=== PATIENT | female | born 1955 | race Caucasian/White ===

== ENCOUNTER → 2023-05-30 12:31 | Outpatient (REF) | payer MEDICARE, SELFPAY ==
[2023-05-30 12:43] VITALS: BP 122/75; BP_SYST 76
[2023-05-30 12:59] VITALS: BP 105/60; BP_SYST 69
== END ==
LOC: RADI 12:31
PROVIDERS: ATTENDING PHYSICIAN Internal Medicine Hematology & Oncology; FAMILY PHYSICIAN Internal Medicine
DX: J90 Pleural effusion, not elsewhere classified (principal)
CPT/HCPCS: 32555; 71045

== ENCOUNTER 2023-05-30 17:48 | Emergency (ER) | payer MEDICARE, SELFPAY ==
[2023-05-30 18:05] LABS: % Basophils 1.4 % (0-2); % Eosinophils 1.9 % (0-6); % Immature Granulocytes 0.2 % (0-0.5); % Lymphocytes 19.9 % (20.5-51.1); % Monocytes 11.8 % (1.7-9.3); % Neutrophils 64.8 % (42.2-75.2); Absolute Basophils 0.1 10^3/uL (0-0.2); Absolute Eosinophils 0.1 10^3/uL (0-0.7); Absolute Lymphocytes 0.8 10^3/uL (1.2-3.4); Absolute Monocytes 0.5 10^3/uL (0.1-0.6); Absolute Neutrophils 2.7 10^3/uL (1.4-6.5); Hematocrit 34.5 % (37.0-47.0); Hemoglobin 11.3 g/dL (12.0-16.0); Mean Corp Hgb Conc. 32.8 g/dL (33.0-37.0); Mean Corpuscular Hgb 28.7 pg (27.0-31.0); Mean Corpuscular Volume 87.6 fL (81.0-99.0); Mean Platelet Volume 9.3 fL (7.4-10.4); Nucleated Red Blood Cells % 0 %; Platelet Count 326 10^3/uL (130-400); Red Blood Cell Count 3.94 10^6/uL (4.20-5.40); Red Cell Dist. Width 16.5 % (11.5-14.5); White Blood Cell Count 4.2 10^3/uL (4.8-10.8)
[2023-05-30 18:16] LABS: APTT 24.1 Sec (23.4-35.0)
[2023-05-30 18:23] LABS: ALT (SGPT) 15 U/L (0-35); AST (SGOT) 21 U/L (14-36); Albumin 2.9 g/dl (3.5-5.0); Alkaline Phosphatase 66 U/L (38-126); Blood Urea Nitrogen 23 mg/dl (7-17); Calcium 8.5 mg/dl (8.4-10.2); Carbon Dioxide 26 mmol/L (22-30); Chloride 106 mmol/L (98-107); Glucose 109 mg/dl (70-99); Potassium 3.7 mmol/L (3.5-5.1); Sodium 134 mmol/L (135-145); Total Bilirubin 0.5 mg/dl (0.2-1.3); Total Protein 5.6 g/dl (6.3-8.2); eGFR > 60.00
[2023-05-30 18:30] LABS: Troponin I < 0.012 ng/ml
[2023-05-30 19:14] VITALS: BP 124/70
[2023-05-30 19:49] VITALS: BP 119/80; BP 121/69; BP 124/70; PULSE 74; PULSE 79; PULSE 82
--- NOTE | 2023-05-30 23:59 | ED.GENMED ---
History of Present Illness
General
Chief Complaint: Fainting/Passed Out
Source: patient, spouse and family (Son)
Exam Limitations: none
Time Seen by Provider: 05/30/23 18:41
Nursing documentation reviewed up to this point in time: agreed with
Travel History
Have you had any contact with someone who has COVID-19?: No
Do you have any symptoms of coronavirus? Fever > 100 degrees, chills, cough, shortness of breath, sore throat, loss of taste or smell, muscle aches, or headache?: No
History of Present Illness
History of Present Illness:
68-year-old female with past medical history of Waldenstr�m's macroglobulinemia, recurrent pleural effusion (chylothorax) who presents to the emergency department accompanied by her and son for evaluation after syncopal event. Patient
reports that she had thoracentesis today for her recurrent chylothorax (she says she gets thoracentesis 3 times weekly); she says that they took off 1.1 L. She says that when she went home she was cooking dinner and generally 'overdoing it.' She
says normally she rests after thoracentesis. She says that she was feeling mildly lightheaded then went to the bathroom to see if maybe she needed to have a bowel movement. She says that she did not actually go to the bathroom and when she stood
up from the toilet and went to walk back to the couch she passed out. witnessed fall says that she did hit her head. She came to the emergency be assessed. She says she did not have any palpitations, chest pain, shortness of breath
associated with her symptoms. She has no complaints here in the emergency room including denying headache, abdominal pain, flank pain, nausea, vomiting. She is not on any blood thinners.
Past History
Past History
ED Past Medical History: Cancer (Melanoma, Waldenstr�m's); Negative CVA or HTN
ED Past Surgical History: None
Social History
Tobacco: Non-smoker
Alcohol: Occasional
Drug: None
Personal:
Living: with family
Employment: Employed
Family History
Family History: Other
Review of Systems
Review of Systems
All Other Systems: ROS reviewed and negative except as documented in HPI and ROS
Constitutional: Denies fever
Respiratory: Denies cough or trouble breathing
Cardiac: Reports syncope; Denies chest pain, diaphoresis or palpitations
ABD/GI: Denies abdominal pain, nausea, vomiting or diarrhea
: Denies flank pain
Musculoskeletal: Denies neck pain or back pain
Neurological: Denies headache, weakness or numbness
Phy Exam
Physical Exam
Physical Exam:
General: Awake, alert, oriented x3; no acute distress
Head: Normocephalic, atraumatic
Eyes: Conjunctiva normal, EOMI, pupils equal round reactive to light bilaterally
Throat: Airway intact, handling secretions
Neck: Trachea midline, supple without meningismus
Lungs: Clear to auscultation bilaterally, no wheezing, rales, rhonchi
Heart: Regular rate and rhythm, no murmurs, gallops, or rubs appreciated
Abd: Soft, non distended, nontender
Neuro: Cranial nerves grossly intact, speech fluid
Skin: no rash
Extremities: Atraumatic, no edema in extremities, equal pulses in all extremities
Scores
Heart Failure Risk
Heart Failure Risk Score: Not Applicable
Heart Score for Chest Pain Patients
STEMI patient?: Not applicable
[place] Syncope Rule
Conjestive Heart Failure History: No
Hematocrit <30%: No
EKG Abnormal (New changes, non NSR on EKG/Monitor): No
Shortness of Breath Symptoms: No
Systolic BP <90 mmHg at Triage: No
Patient is high risk for syncope: No
Withdrawal Assessment of Alcohol
Withdrawal Assessment Completed?: Not applicable
Course
Orders/Labs/Results
Orders:
Orders
05/30/23 17:49
Electrocardiogram (*1) Urgent
Reason for Study: Syncope
CT Head W/o Iv Contrast Urgent
Comment:
Reason For Exam: syncope
CR Chest - 2 Views Urgent
Comment:
Reason For Exam: syncope
05/30/23 17:50
EKG- Treatment ONCE
05/30/23 17:57
Complete Blood Count/With Diff Urgent
Comprehensive Metabolic Panel Urgent
PTT Urgent
Troponin I Urgent
Abnormal Lab Results
05/30/23
17:57
WBC 4.2 L 10^3/uL
(4.8-10.8)
RBC 3.94 L 10^6/uL
(4.20-5.40)
Hgb 11.3 L g/dL
(12.0-16.0)
Hct 34.5 L %
(37.0-47.0)
MCHC 32.8 L g/dL
(33.0-37.0)
RDW 16.5 H %
(11.5-14.5)
Absolute Lymphs (auto) 0.8 L 10^3/uL
(1.2-3.4)
Lymphocytes % 19.9 L %
(20.5-51.1)
Monocytes % 11.8 H %
(1.7-9.3)
Sodium 134 L mmol/L
(135-145)
BUN 23 H mg/dl
(7-17)
Glucose 109 H mg/dl
(70-99)
Total Protein 5.6 L g/dl
(6.3-8.2)
Albumin 2.9 L g/dl
(3.5-5.0)
05/30/23 17:57
05/30/23 17:57
Vital Signs
Initial and Last Documented VS:
Initial Vital Signs
Temp Pulse Resp Pulse Ox
37.0 C 77 20 99
05/30/23 17:50 05/30/23 17:50 05/30/23 17:50 05/30/23 17:50
Last Documented Vital Signs
Temp Pulse Resp BP Pulse Ox
37.0 C 72 18 124/70 99
05/30/23 17:50 05/30/23 19:14 05/30/23 19:14 05/30/23 19:14 05/30/23 19:14
MDM/Problems Addressed
Differential Diagnosis Includes:
Orthostatic/postural hypotension, vagal event, dysrhythmia somewhat less likely; nothing clinically to suggest emergent pathology such as subarachnoid hemorrhage, ruptured AAA, acute DC, massive PE
MDM/Problems Addressed:
68-year-old female presents after syncopal event that happened shortly after large-volume thoracentesis. She did hit her head but did not sustain any other serious injuries. She has no complaints here in the emergency room. Her vital signs are
normal. Exam as above. Her EKG shows no concerning changes�no bradycardia or heart block, no delta wave or Brugada, normal QTc. She had lab work sent in triage including a CBC which shows stable anemia, CMP which showed no clinically significant
abnormalities. She had a troponin sent in triage despite no reported chest pain and this was negative. She had a chest x-ray which showed trace pleural effusions otherwise a couple. She had a CT of the head which was negative for any acute
pathology. I think at this point likely was either a postural episode of hypotension related to recent large-volume thoracentesis or perhaps even a vagal episode. Very low suspicion for emergent pathology at this point based on history, exam, full
clinical picture as above. Nevertheless given her age I did offer her admission overnight on telemetry�shxavier says that she feels well and prefers to be discharged. She says that she 'overdid it' and typically takes it much slower after having
thoracentesis. She wishes to go home and drink fluids I think this is reasonable�using shared decision making discharged and she will follow-up as an outpatient with her primary care physician. Spoke about return precautions all questions answered.
Chronic conditions affecting care:
Recurrent pleural effusion presenting for syncope after thoracentesis related to this
*Radiology
Radiology exam reviewed: radiology read reviewed
*Pulse Oximetry
Patient hypoxic: no
*EKG
Interpreted by ED Provider?: Yes
Heart Rate: 79
Rate: normal
Rhythm: sinus
[place]: normal axis
Interval: normal interval
QRS Pattern: normal QRS
Ischemia: non-specific ST changes
*Critical Care Note
Total Time (30-74mins, 75-104mins- exclusive of procedures): Not Applicable
Data Reviewed
Source: patient, records and family
Patient Management
Social determinants of health affecting care: Strong social support
Escalation/DeEscalation of care consider admission/obs:
Offered admission for monitoring on telemetry�using shared decision making as above, patient discharged with outpatient follow-up plan
ED Attending Note
-
Portions of this chart may have been created with voice recognition software.� Occasional wrong word or��sound alike� substitutions may have occurred due to the inherent limitations of voice recognition software.
Discharge Plan
Departure
Patient Disposition: Home (Routine Discharge)
Date of Disposition: 05/30/23
Time of Disposition: 20:27
Patient with high blood pressure during this ER visit?: No
Discharge Problem:
Syncope
Instructions: Syncope (Fainting) (DC)
Prescriptions:
No Action
omeprazole 40 mg Capsule,Delayed Release(Dr/Ec)
40 mg PO DAILY
famotidine 20 mg Tablet
20 mg PO HS
ferrous sulfate [iron] 325 mg (65 mg iron) Tablet
325 mg PO DAILY
cholecalciferol (vitamin D3) 25 mcg (1,000 unit) Tablet
25 mcg PO DAILY
Brukinsa 80 mg Capsule
160 mg PO BID
Referrals:
Yaneli Molina MD [Family Provider] - Follow up in 2-3 days
Activity Restrictions/Additional Instructions:
Thank you for visiting the Emergency Department at [facility].
1. Please schedule a follow up appointment as directed. Call first thing tomorrow morning to make an appointment.
2. If indicated, please take your medications as instructed and indicated on discharge paperwork.
3. If any of your symptoms do not improve, or persist, or become more severe within 6-12 hours, please return to the emergency department for further care.
4. Please return to the emergency department if you develop a headache, neck pain/stiffness, fever greater than 100.4F, chest pain, shortness of breath, persistent nausea, vomiting, slurred speech, difficulty walking, numbness/tingling, weakness,
signs of infection or any other symptoms that are worrisome to you.
Please call [phone] if you have any questions.
Interventions
Interventions:
*Risk Screen - Suicide Last Done: 05/30/23 17:50
*General Assessment Last Done: 05/30/23 17:50
*Neglect/Abuse Screening Last Done: 05/30/23 17:50
ED- Fall Risk Assessment Last Done: 05/30/23 18:01
*ED COVID-19 Vaccine History Last Done: 05/30/23 18:01
*Nursing Disposition Last Done: 05/30/23 20:32
ED- Cardiac Assessment Last Done: 05/30/23 18:01
ED- Neurological Assessment Last Done: 05/30/23 18:01
Discharge Date and Time
Discharge Date/Time: 05/30/23 20:43
== END 2023-05-30 20:43 | disposition home or self-care (01) ==
LOC: EMR 17:48
PROVIDERS: Student in an Organized Health Care Education/Training Program; EMERGENCY PHYSICIAN Emergency Medicine; FAMILY PHYSICIAN Internal Medicine
DX: R55 Syncope and collapse (principal); J90 Pleural effusion, not elsewhere classified; D64.9 Anemia, unspecified; Z85.820 Personal history of malignant melanoma of skin
CPT/HCPCS: 99285; 32555; 70450; 71045; 71046; 80053; 84484; 85025; 85730; 93005

== ENCOUNTER → 2023-06-02 12:43 | Outpatient (REF) | payer MEDICARE, SELFPAY ==
[2023-06-02 13:00] VITALS: BP 116/67; BP_SYST 82
[2023-06-02 13:26] VITALS: BP 113/73
== END ==
LOC: RADI 12:43
PROVIDERS: ATTENDING PHYSICIAN Internal Medicine Hematology & Oncology
DX: J90 Pleural effusion, not elsewhere classified (principal)
CPT/HCPCS: 32555; 71045

== ENCOUNTER → 2023-06-06 13:04 | Outpatient (REF) | payer MEDICARE, SELFPAY ==
[2023-06-06 13:10] VITALS: BP 118/68; BP_SYST 87
[2023-06-06 13:43] VITALS: BP 124/69; BP_SYST 87
== END ==
LOC: RADI 13:04
PROVIDERS: ATTENDING PHYSICIAN Internal Medicine Hematology & Oncology
DX: J90 Pleural effusion, not elsewhere classified (principal)
CPT/HCPCS: 32555; 71045

== ENCOUNTER → 2023-06-09 08:23 | Outpatient (REF) | payer MEDICARE, SELFPAY ==
[2023-06-09 08:56] LABS: % Basophils 1.7 % (0-2); % Eosinophils 2.4 % (0-6); % Lymphocytes 32.8 % (20.5-51.1); % Monocytes 18.4 % (1.7-9.3); % Neutrophils 44.7 % (42.2-75.2); Absolute Basophils 0.1 10^3/uL (0-0.2); Absolute Eosinophils 0.1 10^3/uL (0-0.7); Absolute Monocytes 0.5 10^3/uL (0.1-0.6); Absolute Neutrophils 1.3 10^3/uL (1.4-6.5); Hematocrit 36.6 % (37.0-47.0); Hemoglobin 11.9 g/dL (12.0-16.0); Mean Corp Hgb Conc. 32.5 g/dL (33.0-37.0); Mean Corpuscular Hgb 28.9 pg (27.0-31.0); Mean Corpuscular Volume 88.8 fL (81.0-99.0); Mean Platelet Volume 9.4 fL (7.4-10.4); Nucleated Red Blood Cells % 0 %; Platelet Count 333 10^3/uL (130-400); Red Blood Cell Count 4.12 10^6/uL (4.20-5.40); Red Cell Dist. Width 15.4 % (11.5-14.5); White Blood Cell Count 2.9 10^3/uL (4.8-10.8)
[2023-06-09 09:08] VITALS: BP 121/80; BP_SYST 88
[2023-06-09 09:22] LABS: ALT (SGPT) 15 U/L (0-35); AST (SGOT) 21 U/L (14-36); Albumin 3.1 g/dl (3.5-5.0); Alkaline Phosphatase 68 U/L (38-126); Blood Urea Nitrogen 19 mg/dl (7-17); Carbon Dioxide 29 mmol/L (22-30); Chloride 105 mmol/L (98-107); Glucose 92 mg/dl (70-99); HDL Cholesterol 52 mg/dl; LDL Cholesterol, Calculated 120 mg/dl; Potassium 4.2 mmol/L (3.5-5.1); Sodium 136 mmol/L (135-145); Total Bilirubin 0.7 mg/dl (0.2-1.3); Total Cholesterol 190 mg/dl (50-199); Total Protein 5.8 g/dl (6.3-8.2); Triglyceride 93 mg/dl (10-149); Very Low Density Lipoprotein 18 mg/dl (0-30); eGFR > 60.00
[2023-06-09 09:31] VITALS: BP 111/66; BP_SYST 74
[2023-06-09 09:51] LABS: TSH Reflex To Free T4 1.42 uIU/ml (0.47-4.68)
== END ==
LOC: RADI 08:23
PROVIDERS: ATTENDING PHYSICIAN Internal Medicine Hematology & Oncology; FAMILY PHYSICIAN Internal Medicine
DX: J90 Pleural effusion, not elsewhere classified (principal)
CPT/HCPCS: 32555; 36415; 71045; 80053; 80061; 84443; 85025

== ENCOUNTER → 2023-06-13 12:28 | Outpatient (REF) | payer MEDICARE, SELFPAY ==
[2023-06-13 12:50] VITALS: BP 116/70; BP_SYST 68
[2023-06-13 13:12] VITALS: BP 108/70
== END ==
LOC: RADI 12:28
PROVIDERS: ATTENDING PHYSICIAN Internal Medicine Hematology & Oncology; FAMILY PHYSICIAN Internal Medicine
DX: J90 Pleural effusion, not elsewhere classified (principal)
CPT/HCPCS: 32555; 71045

== ENCOUNTER → 2023-06-16 13:07 | Outpatient (REF) | payer MEDICARE, SELFPAY ==
[2023-06-16 13:30] VITALS: BP 122/70; BP_SYST 96
[2023-06-16 13:47] VITALS: BP 123/76; BP_SYST 77
[2023-06-16 13:51] VITALS: BP 123/76; BP_SYST 77
== END ==
LOC: RADI 13:07
PROVIDERS: ATTENDING PHYSICIAN Internal Medicine Hematology & Oncology
DX: J90 Pleural effusion, not elsewhere classified (principal)
CPT/HCPCS: 32555; 71045

== ENCOUNTER → 2023-06-19 12:23 | Outpatient (REF) | payer MEDICARE, SELFPAY ==
[2023-06-19 12:32] VITALS: BP 112/77; BP_SYST 72
[2023-06-19 13:20] VITALS: BP 123/67; BP_SYST 65
[2023-06-19 13:24] VITALS: BP 123/67
== END ==
LOC: RADI 12:23
PROVIDERS: ATTENDING PHYSICIAN Internal Medicine Hematology & Oncology; FAMILY PHYSICIAN Internal Medicine
DX: J90 Pleural effusion, not elsewhere classified (principal)
CPT/HCPCS: 32555; 71045

== ENCOUNTER → 2023-06-23 10:54 | Outpatient (REF) | payer MEDICARE, SELFPAY ==
[2023-06-23 11:10] VITALS: BP 101/74; BP_SYST 76
[2023-06-23 11:40] VITALS: BP 129/79; BP_SYST 71
== END ==
LOC: RADI 10:54
PROVIDERS: ATTENDING PHYSICIAN Internal Medicine Hematology & Oncology; FAMILY PHYSICIAN Internal Medicine
DX: J90 Pleural effusion, not elsewhere classified (principal)
CPT/HCPCS: 32555; 71045

== ENCOUNTER → 2023-06-27 11:02 | Outpatient (REF) | payer MEDICARE, SELFPAY ==
[2023-06-27 11:15] VITALS: BP 105/74; BP_SYST 71
[2023-06-27 11:46] VITALS: BP 102/70
== END ==
LOC: WDC 11:02
PROVIDERS: ATTENDING PHYSICIAN Obstetrics & Gynecology Gynecology; FAMILY PHYSICIAN Internal Medicine
DX: Z12.31 Encounter for screening mammogram for malignant neoplasm of breast (principal)
CPT/HCPCS: 32555; 71045; 77063; 77067

== ENCOUNTER → 2023-06-30 11:48 | Outpatient (REF) | payer MEDICARE, SELFPAY ==
[2023-06-30 12:10] VITALS: BP 90/74; BP_SYST 85
[2023-06-30 12:35] VITALS: BP 105/62
== END ==
LOC: RADI 11:48
PROVIDERS: ATTENDING PHYSICIAN Internal Medicine Hematology & Oncology
DX: J90 Pleural effusion, not elsewhere classified (principal)
CPT/HCPCS: 32555; 71045

== ENCOUNTER → 2023-07-04 10:30 | Outpatient (REF) | payer MEDICARE, SELFPAY ==
[2023-07-04 10:46] VITALS: BP 151/100; BP_SYST 72
[2023-07-04 11:54] VITALS: BP 110/75
== END ==
LOC: RADI 10:30
PROVIDERS: ATTENDING PHYSICIAN Internal Medicine Hematology & Oncology; FAMILY PHYSICIAN Internal Medicine
DX: J90 Pleural effusion, not elsewhere classified (principal)
CPT/HCPCS: 32555; 71045

== ENCOUNTER → 2023-07-07 10:05 | Outpatient (REF) | payer MEDICARE, SELFPAY ==
[2023-07-07 10:20] VITALS: BP 121/72; BP_SYST 59
[2023-07-07 10:47] VITALS: BP 111/83; BP_SYST 64
[2023-07-07 11:08] VITALS: BP 111/83
== END ==
LOC: RADI 10:05
PROVIDERS: ATTENDING PHYSICIAN Internal Medicine Hematology & Oncology
DX: J90 Pleural effusion, not elsewhere classified (principal)
CPT/HCPCS: 32555; 71045

== ENCOUNTER → 2023-07-11 13:07 | Outpatient (REF) | payer MEDICARE, SELFPAY ==
[2023-07-11 13:20] VITALS: BP 111/74; BP_SYST 77
[2023-07-11 13:40] VITALS: BP 111/74; BP_SYST 63
[2023-07-11 13:47] VITALS: BP 111/74
== END ==
LOC: RADI 13:07
PROVIDERS: ATTENDING PHYSICIAN Internal Medicine Hematology & Oncology; FAMILY PHYSICIAN Internal Medicine
DX: J90 Pleural effusion, not elsewhere classified (principal)
CPT/HCPCS: 32555; 71045

== ENCOUNTER → 2023-07-14 10:13 | Outpatient (REF) | payer MEDICARE, SELFPAY ==
[2023-07-14 10:35] VITALS: BP 116/74; BP_SYST 84
[2023-07-14 10:51] VITALS: BP 127/69; BP_SYST 72
[2023-07-14 10:55] VITALS: BP 127/69; BP_SYST 72
[2023-07-14 10:58] VITALS: BP 127/69
== END ==
LOC: RADI 10:13
PROVIDERS: ATTENDING PHYSICIAN Internal Medicine Hematology & Oncology
DX: J90 Pleural effusion, not elsewhere classified (principal)
CPT/HCPCS: 32555; 71045

== ENCOUNTER → 2023-07-15 10:49 | Outpatient (REF) | payer MEDICARE, SELFPAY | LOC: HWRAD 10:49 | PROVIDERS: ATTENDING PHYSICIAN Internal Medicine | DX: M85.89 Other specified disorders of bone density and structure, multiple sites (principal) | CPT/HCPCS: 77080 ==

== ENCOUNTER → 2023-07-18 10:37 | Outpatient (REF) | payer MEDICARE, SELFPAY ==
[2023-07-18 10:50] VITALS: BP 113/66; BP_SYST 65
== END ==
LOC: RADI 10:37
PROVIDERS: ATTENDING PHYSICIAN Internal Medicine Hematology & Oncology; FAMILY PHYSICIAN Internal Medicine
DX: J90 Pleural effusion, not elsewhere classified (principal); R06.02 Shortness of breath
CPT/HCPCS: 32555; 71045

== ENCOUNTER → 2023-07-21 12:34 | Outpatient (REF) | payer MEDICARE, SELFPAY ==
[2023-07-21 12:40] VITALS: BP 119/82; BP_SYST 64
[2023-07-21 14:00] VITALS: BP 116/70; BP_SYST 76
[2023-07-21 14:05] VITALS: BP 116/70
== END ==
LOC: RADI 12:34
PROVIDERS: ATTENDING PHYSICIAN Internal Medicine Hematology & Oncology; FAMILY PHYSICIAN Internal Medicine
DX: J90 Pleural effusion, not elsewhere classified (principal); R06.02 Shortness of breath
CPT/HCPCS: 32555; 71045

== ENCOUNTER → 2023-07-23 12:51 | Outpatient (REF) | payer MEDICARE, SELFPAY ==
[2023-07-23 13:00] VITALS: BP 119/61; BP_SYST 69
[2023-07-23 13:50] VITALS: BP 120/65
== END ==
LOC: RADI 12:51
PROVIDERS: ATTENDING PHYSICIAN Internal Medicine Hematology & Oncology; FAMILY PHYSICIAN Internal Medicine
DX: J90 Pleural effusion, not elsewhere classified (principal); R06.02 Shortness of breath
CPT/HCPCS: 32555; 71045

== ENCOUNTER → 2023-07-25 10:24 | Outpatient (REF) | payer MEDICARE, SELFPAY ==
[2023-07-25 10:35] VITALS: BP 103/68; BP_SYST 85
[2023-07-25 11:03] VITALS: BP 106/65
== END ==
LOC: RADI 10:24
PROVIDERS: ATTENDING PHYSICIAN Internal Medicine Hematology & Oncology; FAMILY PHYSICIAN Internal Medicine
DX: J90 Pleural effusion, not elsewhere classified (principal); R06.02 Shortness of breath
CPT/HCPCS: 32555; 71045

== ENCOUNTER → 2023-07-28 09:57 | Outpatient (REF) | payer MEDICARE, SELFPAY ==
[2023-07-28 10:30] VITALS: BP 92/69; BP_SYST 76
[2023-07-28 10:40] VITALS: BP 92/69
== END ==
LOC: RADI 09:57
PROVIDERS: ATTENDING PHYSICIAN Internal Medicine Hematology & Oncology
DX: J90 Pleural effusion, not elsewhere classified (principal); R06.02 Shortness of breath
CPT/HCPCS: 32555; 71045

== ENCOUNTER → 2023-08-01 12:04 | Outpatient (REF) | payer MEDICARE, SELFPAY ==
[2023-08-01 13:00] VITALS: BP 118/59; BP_SYST 83
[2023-08-01 13:15] VITALS: BP 116/73; BP_SYST 70
[2023-08-01 13:50] VITALS: BP 103/69
[2023-08-01 14:29] LABS: % Eosinophils 1.8 % (0-6); % Immature Granulocytes 0.4 % (0-0.5); % Lymphocytes 22.6 % (20.5-51.1); % Monocytes 10.6 % (1.7-9.3); % Neutrophils 63.6 % (42.2-75.2); Absolute Basophils 0.1 10^3/uL (0-0.2); Absolute Eosinophils 0.1 10^3/uL (0-0.7); Absolute Lymphocytes 1.1 10^3/uL (1.2-3.4); Absolute Monocytes 0.5 10^3/uL (0.1-0.6); Absolute Neutrophils 3.2 10^3/uL (1.4-6.5); Hematocrit 34.3 % (37.0-47.0); Hemoglobin 11.3 g/dL (12.0-16.0); Mean Corp Hgb Conc. 32.9 g/dL (33.0-37.0); Mean Corpuscular Hgb 29.2 pg (27.0-31.0); Mean Corpuscular Volume 88.6 fL (81.0-99.0); Mean Platelet Volume 10.4 fL (7.4-10.4); Nucleated Red Blood Cells % 0 %; Platelet Count 318 10^3/uL (130-400); Red Blood Cell Count 3.87 10^6/uL (4.20-5.40); Red Cell Dist. Width 14.1 % (11.5-14.5)
[2023-08-01 14:43] LABS: ALT (SGPT) 13 U/L (0-35); AST (SGOT) 20 U/L (14-36); Albumin 3.1 g/dl (3.5-5.0); Alkaline Phosphatase 76 U/L (38-126); Blood Urea Nitrogen 21 mg/dl (7-17); Calcium 9.2 mg/dl (8.4-10.2); Carbon Dioxide 28 mmol/L (22-30); Chloride 101 mmol/L (98-107); Glucose 87 mg/dl (70-99); Potassium 4.1 mmol/L (3.5-5.1); Sodium 134 mmol/L (135-145); Total Bilirubin 0.7 mg/dl (0.2-1.3); Total Protein 5.7 g/dl (6.3-8.2); eGFR > 60.00
[2023-08-01 14:44] LABS: APTT 26.2 Sec (23.4-35.0); INR 1.07; PT 13.8 Sec (11.4-14.6)
== END ==
LOC: RADI 12:04
PROVIDERS: ATTENDING PHYSICIAN Internal Medicine Hematology & Oncology; FAMILY PHYSICIAN Internal Medicine; REFERRING PHYSICIAN Radiology Diagnostic Radiology
DX: J90 Pleural effusion, not elsewhere classified (principal); R06.02 Shortness of breath
CPT/HCPCS: 32555; 36415; 71045; 80053; 85025; 85610; 85730

== ENCOUNTER → 2023-08-04 10:53 | Outpatient (REF) | payer MEDICARE, SELFPAY ==
[2023-08-04 11:20] VITALS: BP 110/67; BP_SYST 74
[2023-08-04 11:40] VITALS: BP 108/66
== END ==
LOC: RADI 10:53
PROVIDERS: ATTENDING PHYSICIAN Internal Medicine Hematology & Oncology; FAMILY PHYSICIAN Internal Medicine
DX: J90 Pleural effusion, not elsewhere classified (principal); R06.02 Shortness of breath
CPT/HCPCS: 32555; 71045

== ENCOUNTER → 2023-08-08 11:03 | Outpatient (REF) | payer MEDICARE, SELFPAY ==
[2023-08-08 11:14] VITALS: BP 114/69; BP_SYST 72
[2023-08-08 11:40] VITALS: BP 119/69
== END ==
LOC: RADI 11:03
PROVIDERS: ATTENDING PHYSICIAN Internal Medicine Hematology & Oncology
DX: J90 Pleural effusion, not elsewhere classified (principal); R06.02 Shortness of breath
CPT/HCPCS: 32555; 71045

== ENCOUNTER → 2023-08-11 10:54 | Outpatient (REF) | payer MEDICARE, SELFPAY ==
[2023-08-11 11:00] VITALS: BP 110/71; BP_SYST 75
[2023-08-11 11:26] VITALS: BP 113/69; BP_SYST 72
[2023-08-11 11:32] VITALS: BP 113/69
== END ==
LOC: RADI 10:54
PROVIDERS: ATTENDING PHYSICIAN Internal Medicine Hematology & Oncology
DX: J90 Pleural effusion, not elsewhere classified (principal); R06.02 Shortness of breath
CPT/HCPCS: 32555; 71045

== ENCOUNTER → 2023-08-15 11:05 | Outpatient (REF) | payer MEDICARE, SELFPAY ==
[2023-08-15 11:00] VITALS: BP 121/69; BP_SYST 74
[2023-08-15 11:50] VITALS: BP 105/59
== END ==
LOC: RADI 11:05
PROVIDERS: ATTENDING PHYSICIAN Internal Medicine Hematology & Oncology; FAMILY PHYSICIAN Internal Medicine
DX: J90 Pleural effusion, not elsewhere classified (principal); R06.02 Shortness of breath
CPT/HCPCS: 32555; 71045

== ENCOUNTER → 2023-08-18 13:01 | Outpatient (REF) | payer MEDICARE, SELFPAY ==
[2023-08-18 13:08] VITALS: BP 122/74; BP_SYST 70
[2023-08-18 13:45] VITALS: BP 110/79; BP_SYST 80
== END ==
LOC: RADI 13:01
PROVIDERS: ATTENDING PHYSICIAN Internal Medicine Hematology & Oncology
DX: J90 Pleural effusion, not elsewhere classified (principal); R06.02 Shortness of breath
CPT/HCPCS: 32555; 71045

== ENCOUNTER → 2023-08-20 08:14 | Outpatient (REF) | payer MEDICARE, SELFPAY ==
[2023-08-20 09:43] LABS: % Basophils 1.3 % (0-2); % Eosinophils 3.3 % (0-6); % Immature Granulocytes 0.3 % (0-0.5); % Monocytes 9.8 % (1.7-9.3); % Neutrophils 58.3 % (42.2-75.2); Absolute Basophils 0.1 10^3/uL (0-0.2); Absolute Eosinophils 0.1 10^3/uL (0-0.7); Absolute Lymphocytes 1.1 10^3/uL (1.2-3.4); Absolute Monocytes 0.4 10^3/uL (0.1-0.6); Absolute Neutrophils 2.3 10^3/uL (1.4-6.5); Hematocrit 37.1 % (37.0-47.0); Hemoglobin 12.1 g/dL (12.0-16.0); Mean Corp Hgb Conc. 32.6 g/dL (33.0-37.0); Mean Corpuscular Hgb 29.9 pg (27.0-31.0); Mean Corpuscular Volume 91.6 fL (81.0-99.0); Mean Platelet Volume 11.3 fL (7.4-10.4); Nucleated Red Blood Cells % 0 %; Platelet Count 257 10^3/uL (130-400); Red Blood Cell Count 4.05 10^6/uL (4.20-5.40); Red Cell Dist. Width 14.3 % (11.5-14.5); White Blood Cell Count 3.9 10^3/uL (4.8-10.8)
[2023-08-20 10:47] LABS: ALT (SGPT) 20 U/L (0-35); AST (SGOT) 25 U/L (14-36); Albumin 3.3 g/dl (3.5-5.0); Alkaline Phosphatase 75 U/L (38-126); Blood Urea Nitrogen 20 mg/dl (7-17); Calcium 9.5 mg/dl (8.4-10.2); Carbon Dioxide 28 mmol/L (22-30); Chloride 105 mmol/L (98-107); Glucose 86 mg/dl (70-99); Potassium 4.5 mmol/L (3.5-5.1); Sodium 136 mmol/L (135-145); Total Bilirubin 0.5 mg/dl (0.2-1.3); Total Protein 5.9 g/dl (6.3-8.2); eGFR > 60.00
[2023-08-20 11:40] LABS: Folate 10.7 ng/ml (2.76-20); Vitamin B12 472 pg/ml (239-931)
[2023-08-22 07:43] LABS: Viscosity Serum 1.05 cP (<=1.50)
[2023-08-22 14:40] LABS: Alpha 1 Globulin 0.31 g/dL (0.19-0.46); Alpha 2 Globulin 0.74 g/dL (0.48-1.05); Free Kappa Light Chains,Quant 24.97 mg/L (3.30-19.40); Free Lambda Light Chains,Quant 45.81 mg/L (5.71-26.30); IgA 147 mg/dL (68-408); IgG 760 mg/dL (768-1632); IgM 472 mg/dL (35-263); Immunofixation Electrophoresis IFE Done; Kappa/Lambda Fr Light Ratio 0.55 (0.26-1.65); Total Protein-Electrophoresis 5.7 g/dL (6.3-8.2)
== END ==
LOC: REG 08:14
PROVIDERS: ATTENDING PHYSICIAN Internal Medicine Hematology & Oncology; FAMILY PHYSICIAN Internal Medicine
DX: C90.00 Multiple myeloma not having achieved remission (principal); C88.0 Waldenstrom macroglobulinemia; R53.82 Chronic fatigue, unspecified; D50.9 Iron deficiency anemia, unspecified; E53.9 Vitamin B deficiency, unspecified; Z79.899 Other long term (current) drug therapy
CPT/HCPCS: 36415; 80053; 82607; 82746; 82784; 83521; 84155; 84165; 85025; 85810; 86334

== ENCOUNTER → 2023-08-22 12:14 | Outpatient (REF) | payer MEDICARE, SELFPAY ==
[2023-08-22 12:36] VITALS: BP 121/67; BP_SYST 67
== END ==
LOC: RADI 12:14
PROVIDERS: ATTENDING PHYSICIAN Internal Medicine Hematology & Oncology
DX: J90 Pleural effusion, not elsewhere classified (principal); R06.00 Dyspnea, unspecified
CPT/HCPCS: 32555; 71045

== ENCOUNTER → 2023-08-25 08:11 | Outpatient (REF) | payer MEDICARE, SELFPAY ==
[2023-08-25 10:17] VITALS: BP 115/51; BP_SYST 71
[2023-08-25 10:36] VITALS: BP 106/56
== END ==
LOC: RADI 08:11
PROVIDERS: ATTENDING PHYSICIAN Internal Medicine Hematology & Oncology; FAMILY PHYSICIAN Internal Medicine
DX: J90 Pleural effusion, not elsewhere classified (principal); R06.02 Shortness of breath; C90.00 Multiple myeloma not having achieved remission; C88.0 Waldenstrom macroglobulinemia; R53.82 Chronic fatigue, unspecified; D50.9 Iron deficiency anemia, unspecified; E53.9 Vitamin B deficiency, unspecified
CPT/HCPCS: 32555; 71045; 76700; 93306

== ENCOUNTER → 2023-09-01 12:03 | Outpatient (REF) | payer MEDICARE, SELFPAY ==
[2023-09-01 12:18] VITALS: BP 116/77; BP_SYST 68
[2023-09-01 12:56] VITALS: BP 114/65; BP_SYST 68
[2023-09-01 13:16] VITALS: BP 114/65
== END ==
LOC: RADI 12:03
PROVIDERS: ATTENDING PHYSICIAN Internal Medicine Hematology & Oncology; FAMILY PHYSICIAN Internal Medicine
DX: J90 Pleural effusion, not elsewhere classified (principal); R06.02 Shortness of breath
CPT/HCPCS: 32555; 71045

== ENCOUNTER → 2023-09-08 12:49 | Outpatient (REF) | payer MEDICARE, SELFPAY ==
[2023-09-08 13:03] VITALS: BP 124/69; BP_SYST 74
[2023-09-08 13:25] VITALS: BP 101/68
== END ==
LOC: RADI 12:49
PROVIDERS: ATTENDING PHYSICIAN Internal Medicine Hematology & Oncology; FAMILY PHYSICIAN Internal Medicine
DX: J90 Pleural effusion, not elsewhere classified (principal); R06.02 Shortness of breath
CPT/HCPCS: 32555; 71045

== ENCOUNTER → 2023-10-27 08:40 | Outpatient (REF) | payer MEDICARE, SELFPAY ==
[2023-10-27 09:53] LABS: % Basophils 0.9 % (0-2); % Eosinophils 2.2 % (0-6); % Lymphocytes 24.6 % (20.5-51.1); % Monocytes 12.5 % (1.7-9.3); % Neutrophils 59.8 % (42.2-75.2); ALT (SGPT) < 10 U/L (0-35); AST (SGOT) 17 U/L (14-36); Absolute Eosinophils 0.1 10^3/uL (0-0.7); Absolute Lymphocytes 0.8 10^3/uL (1.2-3.4); Absolute Monocytes 0.4 10^3/uL (0.1-0.6); Absolute Neutrophils 1.9 10^3/uL (1.4-6.5); Albumin 3.8 g/dl (3.5-5.0); Alkaline Phosphatase 66 U/L (38-126); Blood Urea Nitrogen 22 mg/dl (7-17); Calcium 9.4 mg/dl (8.4-10.2); Carbon Dioxide 25 mmol/L (22-30); Chloride 106 mmol/L (98-107); Glucose 85 mg/dl (70-99); Hemoglobin 11.2 g/dL (12.0-16.0); Mean Corp Hgb Conc. 32.9 g/dL (33.0-37.0); Mean Corpuscular Hgb 28.9 pg (27.0-31.0); Mean Corpuscular Volume 87.9 fL (81.0-99.0); Mean Platelet Volume 10.7 fL (7.4-10.4); Nucleated Red Blood Cells % 0 %; Platelet Count 217 10^3/uL (130-400); Potassium 4.3 mmol/L (3.5-5.1); Red Blood Cell Count 3.87 10^6/uL (4.20-5.40); Red Cell Dist. Width 13.6 % (11.5-14.5); Sodium 139 mmol/L (135-145); Total Bilirubin 0.5 mg/dl (0.2-1.3); Total Protein 6.5 g/dl (6.3-8.2); White Blood Cell Count 3.2 10^3/uL (4.8-10.8); eGFR > 60.00
[2023-10-27 10:58] LABS: Folate 8.8 ng/ml (2.76-20); Vitamin B12 307 pg/ml (239-931)
[2023-10-29 08:29] LABS: Viscosity Serum 1.07 cP (<=1.50)
[2023-10-30 00:45] LABS: Albumin 3.73 g/dL (3.75-5.01); Alpha 1 Globulin 0.26 g/dL (0.19-0.46); Alpha 2 Globulin 0.57 g/dL (0.48-1.05); Free Kappa Light Chains,Quant 17.79 mg/L (3.30-19.40); Free Lambda Light Chains,Quant 32.12 mg/L (5.71-26.30); IgA 133 mg/dL (68-408); IgG 1015 mg/dL (768-1632); IgM 374 mg/dL (35-263); Immunofixation Electrophoresis IFE Done; Kappa/Lambda Fr Light Ratio 0.55 (0.26-1.65); Total Protein-Electrophoresis 6.3 g/dL (6.3-8.2)
== END ==
LOC: REG 08:40
PROVIDERS: ATTENDING PHYSICIAN Internal Medicine Hematology & Oncology; FAMILY PHYSICIAN Internal Medicine
DX: C90.00 Multiple myeloma not having achieved remission (principal); C88.0 Waldenstrom macroglobulinemia; R53.82 Chronic fatigue, unspecified; D50.9 Iron deficiency anemia, unspecified; E53.9 Vitamin B deficiency, unspecified; D51.9 Vitamin B12 deficiency anemia, unspecified; D51.0 Vitamin B12 deficiency anemia due to intrinsic factor deficiency
CPT/HCPCS: 36415; 80053; 82607; 82746; 82784; 83521; 84155; 84165; 85025; 85810; 86334

== ENCOUNTER → 2024-01-07 09:07 | Outpatient (REF) | payer MEDICARE, SELFPAY ==
[2024-01-07 10:01] LABS: % Basophils 1.3 % (0-2); % Lymphocytes 27.4 % (20.5-51.1); % Monocytes 11.9 % (1.7-9.3); % Neutrophils 57.4 % (42.2-75.2); Absolute Eosinophils 0.1 10^3/uL (0-0.7); Absolute Lymphocytes 0.8 10^3/uL (1.2-3.4); Absolute Monocytes 0.4 10^3/uL (0.1-0.6); Absolute Neutrophils 1.7 10^3/uL (1.4-6.5); Hematocrit 38.1 % (37.0-47.0); Hemoglobin 12.7 g/dL (12.0-16.0); Mean Corp Hgb Conc. 33.3 g/dL (33.0-37.0); Mean Corpuscular Hgb 30.5 pg (27.0-31.0); Mean Corpuscular Volume 91.4 fL (81.0-99.0); Mean Platelet Volume 10.6 fL (7.4-10.4); Nucleated Red Blood Cells % 0 %; Platelet Count 197 10^3/uL (130-400); Red Blood Cell Count 4.17 10^6/uL (4.20-5.40); Red Cell Dist. Width 13.3 % (11.5-14.5)
[2024-01-07 10:51] LABS: ALT (SGPT) 13 U/L (0-35); AST (SGOT) 21 U/L (14-36); Albumin 4.2 g/dl (3.5-5.0); Alkaline Phosphatase 67 U/L (38-126); Blood Urea Nitrogen 20 mg/dl (7-17); Calcium 9.5 mg/dl (8.4-10.2); Carbon Dioxide 29 mmol/L (22-30); Chloride 105 mmol/L (98-107); Glucose 87 mg/dl (70-99); Potassium 4.7 mmol/L (3.5-5.1); Sodium 141 mmol/L (135-145); Total Bilirubin 0.8 mg/dl (0.2-1.3); Total Protein 6.8 g/dl (6.3-8.2); eGFR > 60.00
[2024-01-07 12:03] LABS: Vitamin B12 301 pg/ml (239-931)
== END ==
LOC: REG 09:07
PROVIDERS: ATTENDING PHYSICIAN Nurse Practitioner Adult Health; FAMILY PHYSICIAN Internal Medicine
DX: C90.00 Multiple myeloma not having achieved remission (principal); C88.0 Waldenstrom macroglobulinemia; R53.82 Chronic fatigue, unspecified; D50.9 Iron deficiency anemia, unspecified; E53.9 Vitamin B deficiency, unspecified; D51.9 Vitamin B12 deficiency anemia, unspecified
CPT/HCPCS: 36415; 71046; 80053; 82607; 82746; 82784; 83521; 84155; 84165; 85025; 85810; 86334

== ENCOUNTER → 2024-01-26 14:27 | Outpatient (REF) | payer MEDICARE, SELFPAY | LOC: RAD 14:27 | PROVIDERS: ATTENDING PHYSICIAN Internal Medicine Hematology & Oncology; FAMILY PHYSICIAN Internal Medicine | DX: C90.00 Multiple myeloma not having achieved remission (principal); C88.0 Waldenstrom macroglobulinemia; R53.82 Chronic fatigue, unspecified; D50.9 Iron deficiency anemia, unspecified; E53.9 Vitamin B deficiency, unspecified | CPT/HCPCS: 71260; 74160; Q9967 ==

== ENCOUNTER → 2024-02-24 13:03 | Outpatient (REF) | payer MEDICARE, SELFPAY ==
[2024-02-24 15:55] LABS: D-Dimer 0.33 ug/mlFEU (0.00-0.50)
== END ==
LOC: HWRAD 13:03
PROVIDERS: ATTENDING PHYSICIAN Internal Medicine Hematology & Oncology; FAMILY PHYSICIAN Internal Medicine
DX: I26.99 Other pulmonary embolism without acute cor pulmonale (principal); C90.00 Multiple myeloma not having achieved remission; C88.00 Waldenstrom macroglobulinemia not having achieved remission; R53.82 Chronic fatigue, unspecified; D50.9 Iron deficiency anemia, unspecified; E53.9 Vitamin B deficiency, unspecified
CPT/HCPCS: 36415; 71275; 85379; 93005; Q9967

== ENCOUNTER → 2024-03-31 08:44 | Outpatient (REF) | payer MEDICARE, SELFPAY ==
[2024-03-31 10:14] LABS: NT-proBNP 305 pg/ml; Troponin I < 0.012 ng/ml
== END ==
LOC: REG 08:44
PROVIDERS: ATTENDING PHYSICIAN Internal Medicine Cardiovascular Disease; FAMILY PHYSICIAN Internal Medicine
DX: R79.89 Other specified abnormal findings of blood chemistry (principal); C88.00 Waldenstrom macroglobulinemia not having achieved remission; I25.10 Atherosclerotic heart disease of native coronary artery without angina pectoris
CPT/HCPCS: 36415; 83880; 84484

== ENCOUNTER → 2024-04-09 09:30 | Outpatient (REF) | payer MEDICARE, SELFPAY | LOC: RCS 09:30 | PROVIDERS: ATTENDING PHYSICIAN Internal Medicine Cardiovascular Disease; FAMILY PHYSICIAN Internal Medicine | DX: C88.00 Waldenstrom macroglobulinemia not having achieved remission (principal); R79.89 Other specified abnormal findings of blood chemistry; I25.10 Atherosclerotic heart disease of native coronary artery without angina pectoris | CPT/HCPCS: 93017; 93350 ==

== ENCOUNTER → 2024-04-27 07:57 | Outpatient (REF) | payer MEDICARE, SELFPAY | LOC: RCS 07:57 | PROVIDERS: ATTENDING PHYSICIAN Internal Medicine Cardiovascular Disease; FAMILY PHYSICIAN Internal Medicine | DX: C88.00 Waldenstrom macroglobulinemia not having achieved remission (principal); R79.89 Other specified abnormal findings of blood chemistry; I25.10 Atherosclerotic heart disease of native coronary artery without angina pectoris | CPT/HCPCS: 93306; 93356 ==

== ENCOUNTER → 2024-04-30 08:14 | Outpatient (REF) | payer MEDICARE, SELFPAY ==
[2024-04-30 09:06] LABS: % Basophils 1.6 % (0-2); % Eosinophils 2.6 % (0-6); % Lymphocytes 24.7 % (20.5-51.1); % Monocytes 12.2 % (1.7-9.3); % Neutrophils 58.9 % (42.2-75.2); Absolute Basophils 0.1 10^3/uL (0-0.2); Absolute Eosinophils 0.1 10^3/uL (0-0.7); Absolute Lymphocytes 0.8 10^3/uL (1.2-3.4); Absolute Monocytes 0.4 10^3/uL (0.1-0.6); Absolute Neutrophils 1.8 10^3/uL (1.4-6.5); Hematocrit 35.4 % (37.0-47.0); Hemoglobin 11.9 g/dL (12.0-16.0); Mean Corp Hgb Conc. 33.6 g/dL (33.0-37.0); Mean Corpuscular Volume 92.2 fL (81.0-99.0); Mean Platelet Volume 10.4 fL (7.4-10.4); Nucleated Red Blood Cells % 0 %; Platelet Count 194 10^3/uL (130-400); Red Blood Cell Count 3.84 10^6/uL (4.20-5.40); Red Cell Dist. Width 12.8 % (11.5-14.5)
[2024-04-30 10:05] LABS: ALT (SGPT) 12 U/L (0-35); AST (SGOT) 18 U/L (14-36); Albumin 3.8 g/dl (3.5-5.0); Alkaline Phosphatase 55 U/L (38-126); Blood Urea Nitrogen 19 mg/dl (7-17); Calcium 9.1 mg/dl (8.4-10.2); Carbon Dioxide 26 mmol/L (22-30); Chloride 104 mmol/L (98-107); Glucose 90 mg/dl (70-99); Potassium 4.9 mmol/L (3.5-5.1); Sodium 138 mmol/L (135-145); Total Bilirubin 0.7 mg/dl (0.2-1.3); Total Protein 6.3 g/dl (6.3-8.2); eGFR > 60.00
[2024-05-03 04:53] LABS: Alpha 1 Globulin 0.23 g/dL (0.19-0.46); Alpha 2 Globulin 0.55 g/dL (0.48-1.05); Free Lambda Light Chains,Quant 24.09 mg/L (5.71-26.30); IgA 106 mg/dL (68-408); IgG 924 mg/dL (768-1632); IgM 305 mg/dL (35-263); Immunofixation Electrophoresis IFE Done; Kappa/Lambda Fr Light Ratio 0.64 (0.26-1.65); Monoclonal Protein 0.91 g/dL (<=0.00); Total Protein-Electrophoresis 6.2 g/dL (6.3-8.2)
== END ==
LOC: REG 08:14
PROVIDERS: ATTENDING PHYSICIAN Internal Medicine Hematology & Oncology; FAMILY PHYSICIAN Internal Medicine
DX: C90.00 Multiple myeloma not having achieved remission (principal); C88.00 Waldenstrom macroglobulinemia not having achieved remission; R53.82 Chronic fatigue, unspecified; D50.9 Iron deficiency anemia, unspecified; E53.9 Vitamin B deficiency, unspecified
CPT/HCPCS: 36415; 80053; 82784; 83521; 84155; 84165; 85025; 86334

== ENCOUNTER → 2024-05-25 08:42 | Outpatient (REF) | payer MEDICARE, SELFPAY ==
[2024-05-25 10:36] LABS: HDL Cholesterol 72 mg/dl; LDL Cholesterol, Calculated 115 mg/dl; Total Cholesterol 199 mg/dl (50-199); Triglyceride 62 mg/dl (10-149); Very Low Density Lipoprotein 12 mg/dl (0-30)
[2024-05-25 10:44] LABS: Total Iron Binding Capacity 230 ug/dl (265-497)
[2024-05-25 11:11] LABS: Ferritin 34.6 ng/ml (11.1-264.0)
[2024-05-25 11:22] LABS: TSH Reflex To Free T4 1.27 uIU/ml (0.47-4.68)
[2024-05-25 11:40] LABS: Vitamin B12 280 pg/ml (239-931)
== END ==
LOC: REG 08:42
PROVIDERS: ATTENDING PHYSICIAN Internal Medicine; REFERRING PHYSICIAN Internal Medicine Hematology & Oncology
DX: E78.00 Pure hypercholesterolemia, unspecified (principal); E53.8 Deficiency of other specified B group vitamins; D50.9 Iron deficiency anemia, unspecified; K21.9 Gastro-esophageal reflux disease without esophagitis
CPT/HCPCS: 36415; 80061; 82607; 82728; 83550; 84443

== ENCOUNTER → 2024-06-30 11:57 | Outpatient (REF) | payer MEDICARE, SELFPAY | LOC: WDC 11:57 | PROVIDERS: ATTENDING PHYSICIAN Obstetrics & Gynecology Gynecology | DX: Z12.31 Encounter for screening mammogram for malignant neoplasm of breast (principal) | CPT/HCPCS: 77063; 77067 ==

== ENCOUNTER → 2024-07-30 07:58 | Outpatient (REF) | payer MEDICARE, SELFPAY | LOC: REG 07:58 | PROVIDERS: ATTENDING PHYSICIAN Internal Medicine Hematology & Oncology; FAMILY PHYSICIAN Internal Medicine | DX: C90.00 Multiple myeloma not having achieved remission (principal); C88.00 Waldenstrom macroglobulinemia not having achieved remission; R53.82 Chronic fatigue, unspecified; D50.9 Iron deficiency anemia, unspecified; E53.9 Vitamin B deficiency, unspecified | CPT/HCPCS: 36415; 82784; 83521; 84155; 84165; 86334 ==

== ENCOUNTER → 2024-10-11 16:28 | Outpatient (REF) | payer MEDICARE, SELFPAY ==
[2024-10-11 16:53] LABS: % Basophils 0.8 % (0-2); % Eosinophils 2.5 % (0-6); % Immature Granulocytes 0.3 % (0-0.5); % Lymphocytes 24.3 % (20.5-51.1); % Monocytes 11.5 % (1.7-9.3); % Neutrophils 60.6 % (42.2-75.2); Absolute Eosinophils 0.1 10^3/uL (0-0.7); Absolute Lymphocytes 0.9 10^3/uL (1.2-3.4); Absolute Monocytes 0.4 10^3/uL (0.1-0.6); Absolute Neutrophils 2.2 10^3/uL (1.4-6.5); Hematocrit 34.2 % (37.0-47.0); Hemoglobin 11.5 g/dL (12.0-16.0); Mean Corp Hgb Conc. 33.6 g/dL (33.0-37.0); Mean Corpuscular Hgb 30.5 pg (27.0-31.0); Mean Corpuscular Volume 90.7 fL (81.0-99.0); Mean Platelet Volume 10.2 fL (7.4-10.4); Nucleated Red Blood Cells % 0 %; Platelet Count 208 10^3/uL (130-400); Red Blood Cell Count 3.77 10^6/uL (4.20-5.40); Red Cell Dist. Width 12.7 % (11.5-14.5); White Blood Cell Count 3.6 10^3/uL (4.8-10.8)
[2024-10-11 17:30] LABS: ALT (SGPT) < 10 U/L (0-35); AST (SGOT) 14 U/L (14-36); Albumin 3.9 g/dl (3.5-5.0); Alkaline Phosphatase 51 U/L (38-126); Blood Urea Nitrogen 24 mg/dl (7-17); Calcium 9.2 mg/dl (8.4-10.2); Carbon Dioxide 24 mmol/L (22-30); Chloride 110 mmol/L (98-107); Glucose 98 mg/dl (70-99); Sodium 140 mmol/L (135-145); Total Bilirubin 0.5 mg/dl (0.2-1.3); Total Protein 6.4 g/dl (6.3-8.2); eGFR > 60.00
== END ==
LOC: REG 16:28
PROVIDERS: ATTENDING PHYSICIAN Internal Medicine Hematology & Oncology; FAMILY PHYSICIAN Internal Medicine
DX: C90.00 Multiple myeloma not having achieved remission (principal); C88.00 Waldenstrom macroglobulinemia not having achieved remission; R53.82 Chronic fatigue, unspecified; D50.9 Iron deficiency anemia, unspecified; E53.9 Vitamin B deficiency, unspecified
CPT/HCPCS: 36415; 80053; 82784; 83521; 84155; 84165; 85025; 86334

== ENCOUNTER → 2024-10-15 09:28 | Outpatient (REF) | payer MEDICARE, SELFPAY | LOC: RAD 09:28 | PROVIDERS: ATTENDING PHYSICIAN Nurse Practitioner Family; FAMILY PHYSICIAN Internal Medicine | DX: R06.02 Shortness of breath (principal) | CPT/HCPCS: 71046 ==

== ENCOUNTER → 2025-01-06 07:56 | Outpatient (REF) | payer MEDICARE, SELFPAY ==
[2025-01-06 08:41] LABS: Hematocrit 35.9 % (37.0-47.0); Hemoglobin 12.2 g/dL (12.0-16.0); Mean Corp Hgb Conc. 34.0 g/dL (33.0-37.0); Mean Corpuscular Volume 91.3 fL (81.0-99.0); Nucleated Red Blood Cells % 0 %; Platelet Count 209 10^3/uL (130-400); Red Cell Dist. Width 12.5 % (11.5-14.5)
[2025-01-06 09:06] LABS: ALT (SGPT) 13 U/L (0-35); AST (SGOT) 16 U/L (14-36); Albumin 3.9 g/dl (3.5-5.0); Alkaline Phosphatase 44 U/L (38-126); Blood Urea Nitrogen 23 mg/dl (7-17); Calcium 9.5 mg/dl (8.4-10.2); Carbon Dioxide 29 mmol/L (22-30); Chloride 106 mmol/L (98-107); Glucose 88 mg/dl (70-99); LDH 132 U/L (120-246); Potassium 5.2 mmol/L (3.5-5.1); Sodium 137 mmol/L (135-145); Total Protein 6.5 g/dl (6.3-8.2); eGFR > 60.00
== END ==
LOC: REG 07:56
PROVIDERS: ATTENDING PHYSICIAN Dermatology; FAMILY PHYSICIAN Internal Medicine
DX: Z85.820 Personal history of malignant melanoma of skin (principal)
CPT/HCPCS: 36415; 80053; 83615; 85025

== ENCOUNTER → 2025-02-04 10:03 | Outpatient (REF) | payer MEDICARE, SELFPAY ==
[2025-02-04 10:38] LABS: Hematocrit 37.8 % (37.0-47.0); Hemoglobin 12.5 g/dL (12.0-16.0); Mean Corp Hgb Conc. 33.1 g/dL (33.0-37.0); Mean Corpuscular Volume 91.7 fL (81.0-99.0); Nucleated Red Blood Cells % 0 %; Platelet Count 219 10^3/uL (130-400); Red Cell Dist. Width 12.7 % (11.5-14.5)
[2025-02-04 12:02] LABS: ALT (SGPT) 11 U/L (0-35); AST (SGOT) 16 U/L (14-36); Albumin 4.0 g/dl (3.5-5.0); Alkaline Phosphatase 48 U/L (38-126); Blood Urea Nitrogen 22 mg/dl (7-17); Calcium 9.6 mg/dl (8.4-10.2); Carbon Dioxide 28 mmol/L (22-30); Chloride 107 mmol/L (98-107); Glucose 86 mg/dl (70-99); Potassium 5.0 mmol/L (3.5-5.1); Sodium 138 mmol/L (135-145); Total Protein 6.7 g/dl (6.3-8.2); eGFR > 60.00
== END ==
LOC: REG 10:03
PROVIDERS: ATTENDING PHYSICIAN Internal Medicine Hematology & Oncology; FAMILY PHYSICIAN Internal Medicine
DX: C90.00 Multiple myeloma not having achieved remission (principal); R53.82 Chronic fatigue, unspecified; D50.9 Iron deficiency anemia, unspecified; E53.9 Vitamin B deficiency, unspecified
CPT/HCPCS: 36415; 80053; 82784; 83521; 84155; 84165; 85025; 86334